=== PATIENT | female | born 1980 | race Caucasian/White ===

== ENCOUNTER 2020-04-03 00:08 | Emergency (ER) | payer BC, OTHER ==
[~2020-04-03] VITALS: Ht 172.7 cm; Wt 80.0 kg
[~2020-04-03 00:08] MED LIST: CYCL-394 PO; HYDR-3965 PO; ONDA4TAB9 PO
[2020-04-03 00:15] VITALS: BP 117/85
--- NOTE | 2020-04-03 00:26 | NUR ---
PT IS SEMI UNCOOPERATIVE WITH QUESTIONING. WHEN TRIAGE IS FINISHED SHE ASKS, "CAN I TAKE ALL THIS SHIT OFF NOW?"
[2020-04-03] MEDS ORDERED: LIDOcaine 1% W/epiNEPHrine 1:200,000 10ml vial IJ ONE (00:45)
[2020-04-03] MEDS ORDERED: AMOX-422 PO (01:14)
== END 2020-04-03 01:28 | disposition home or self-care (01) ==
LOC: ER 00:09
DX: S01.81XA Laceration without foreign body of other part of head, initial encounter (principal); S11.83XA Puncture wound without foreign body of other specified part of neck, initial encounter; Z72.89 Other problems related to lifestyle; Z56.0 Unemployment, unspecified; Z79.899 Other long term (current) drug therapy; W54.0XXA Bitten by dog, initial encounter; Y93.89 Activity, other specified; Y92.89 Other specified places as the place of occurrence of the external cause; Y99.8 Other external cause status
CPT/HCPCS: 12011; 99283